=== PATIENT | male | born 1985 | race African-American/Black ===

== ENCOUNTER 2017-06-22 14:56 | Observation (INO) | payer MEDICAID ==
[2017-06-22 15:02] VITALS: BMI 24.3
[2017-06-22] MEDS ORDERED: TORADOL 30 MG VIAL IVP ONE (15:07)
[2017-06-22] MEDS ORDERED: TORADOL 30 MG VIAL ONE (15:08)
--- NOTE | 2017-06-22 15:17 | DR.MBACK ---
HPI - Time Seen Time seen: 15:20 - PCP Primary Care Physician: perry - HPI Comment HPI Comment: PATIENT DENIES PAIN GOING INTO LOWER EXTREMITIES. NO TRAUMA REPORTED. - Complaint Chief Complaint Doctors Comments: INCREASING LOWER BACK PAIN. SNEEZE AT HOME TODAY, HE WAS UNABLE TO MOVE. EMS CALLED. HERE IN ED ON BACK BOARD. IN SEVERE PAIN. BLADDER FUNCTION NOTED IN ED TO BE INTACT. Chief Complaint:: patient stated his back has been bothering him since the of the year. he stated he stayed at his baby [facility] house and he woke up and sneezed and since then he cant move. - Reviewed Nurses Notes Review: Yes - Source History Provided: Patient - Mode of Arrival Mode of Arrival: EMS - Timing Onset of Chief Complaint: 06/21/17 - Duration Duration: Constant Duration: Hours - Location Back Pain Location: Lower, Lumbar Radiation To: None - Severity Severity: Moderate - Quality Quality: Aching, Sharp - Context Onset: Spontaneous History of: None - Modifying Factors Worsened By: None - Associated Signs and Symptoms Back Pain Symptoms: None Numbness: None Weakness: None PMH - PMH Past Medical History: No Past Surgical History: No - Family History History of Family Medical Conditions: No - Social History Does patient currently use any type of tobacco product: Yes Have you used tobacco products in the last 12 months: Yes Type of Tobacco Use: Cigarettes How many years tobacco product used: 5 Does any household member use tobacco: No Alcohol Use: None Do you use any recreational Drugs:: No Lives With: Family Lives Where: Home - infectious screening In the last 2 months have you had wt loss of >10#?: NO Have you had fever, night sweats or hemotysis?: No Have you traveled outside the country in the last 6 months?: No Isolation: Standard ROS - Review of Systems Constitutional: No Symptoms Reported, Weakness. negative: Chills, Fever Eyes: negative: Eye Pain, Discharge ENTM: No Symptoms Reported Respiratoy: No Symptoms Reported Cardiovascular: No Symptoms Reported Gastrointestinal/Abdominal: No Symptoms Reported Genitourinary: negative: Discharge, Dysuria Neurological: Tingling, Problems Walking (OR MOVING IN BED) Musculoskeletal: Muscle Pain Integumentary: No Symptoms Reported Hematologic/Lymphatic: No Symptoms Reported Endocrine: No Symptoms Reported All Other Systems: Reviewed and Negative PE - Vital Signs Vitals: Temperature 98.9 F Pulse Rate 73 Respiratory Rate 16 Blood Pressure [Right Arm] 95/44 Blood Pressure 144/84 O2 Sat by Pulse Oximetry 99 - General Limitations: No Limitations General Appearance: Alert - Head Head Exam: Normal Inspection - Eyes Eye exam: Normal Appearance - ENT ENT Exam: Normal External Ear Exam - Chest Chest Inspection: Symmetric Chest Wall Rise - Respiratory Respiratory Exam: Bilateral Clear to Auscultation - Cardiovascular Cardiovascular Exam: Regular Rate, Normal Rhythm, Normal Heart Sounds - Abdominal Exam Abdominal Exam: Normal Bowel Sounds, Soft. negative: Tenderness - Rectal Rectal Exam: Deferred - Genitourinary Exam: Male: Deferred - Extremities Extremities Exam: Normal Inspection - Back Back Exam: Paraspinal Tenderness, Vertebral Tenderness (LOWER SPINE LUMBOSACRAL AREA TENDER. ROM DECREASE.) - Neurological Neurological Exam: Alert, Oriented X3 - Psychiatric Psychiatric Exam: Normal Affect, Normal Mood - Skin Skin Exam: Normal Color MDM - Additional Information Additional Information Obtained From: Family - Differential Diagnosis Differential Diagnosis: DJD (COMPRESION OF LUMBER DISC WITH PROTUSION), Musculoskeletal Pain, Strain Course - Treatment Treatment: SEE ORDERS. PAIN MED GIVEN IN ED. - Consultation Consultation Comments: DISCUSS PATIENT WITH DR. LINO. MEDICINE TO ADMIT PATIENT. DR. GÓMEZ WILL ADMIT PATIENT. - Education/Counseling Education/Counseling: Patient, Family, Education Educated On: Diagnosis ROR - Labs Reviewed Laboratory Results Reviewed?: Yes Result Diagrams: 06/22/17 18:00 06/22/17 18:00 Laboratory: WBC 9.1 X10^3/uL (3.6-10.0) 06/22/17 18:00 RBC 5.15 X10^6/uL (4.7-6.0) 06/22/17 18:00 Hgb 14.9 g/dL (13.5-18.0) 06/22/17 18:00 Hct 43.8 % (42.0-54.0) 06/22/17 18:00 MCV 85.1 fL (80.0-100.0) 06/22/17 18:00 MCH 28.9 pg (27.0-34.0) 06/22/17 18:00 MCHC 34.0 g/dL (33.0-35.0) 06/22/17 18:00 RDW 14.4 % (11.6-16.5) 06/22/17 18:00 Plt Count 259 X10^3/uL (150.0-450.0) 06/22/17 18:00 MPV 8.3 fL (7.4-11.0) 06/22/17 18:00 Neut % 72.6 % (42.0-75.0) 06/22/17 18:00 Lymph % 18.4 % (21.0-51.0) L 06/22/17 18:00 [place] % 7.2 % (0.0-13.0) 06/22/17 18:00 Eos % 1.3 % (0.9-2.9) 06/22/17 18:00 Baso % 0.5 % (0.2-1.0) 06/22/17 18:00 Neut # 6.6 x10^3/uL (2.2-4.8) H 06/22/17 18:00 Lymph # 1.7 X10^3/uL (1.3-2.9) 06/22/17 18:00 [place] # 0.7 x10^3/uL (0.3-0.8) 06/22/17 18:00 Eos # 0.1 x10^3/uL (0.0-0.2) 06/22/17 18:00 Baso # 0.0 X10^3/uL (0.0-0.1) 06/22/17 18:00 Absolute Nucleated RBC 0.0 /100WBC 06/22/17 18:00 Sodium 138 mmol/L (136-145) 06/22/17 18:00 Corrected Sodium TNP 06/22/17 18:00 Potassium 3.5 mmol/L (3.5-5.1) 06/22/17 18:00 Chloride 103 mmol/L (98-107) 06/22/17 18:00 Carbon Dioxide 28.1 mmol/L (21-32) 06/22/17 18:00 BUN 8 mg/dL (7-18) 06/22/17 18:00 Creatinine 0.91 mg/dL (0.70-1.30) 06/22/17 18:00 Est GFR (MDRD) Af Amer > 60 (>60) 06/22/17 18:00 Est GFR (MDRD) Non-Af > 60 (>60) 06/22/17 18:00 Glucose 99 mg/dL (65-99) 06/22/17 18:00 Calcium 8.9 mg/dL (8.5-10.1) 06/22/17 18:00 Corrected Calcium TNP 06/22/17 18:00 Total Bilirubin 0.50 mg/dL (0.2-1.0) 06/22/17 18:00 AST 20 Units/L (15-37) 06/22/17 18:00 ALT 29 Units/L (12-78) 06/22/17 18:00 Alkaline Phosphatase 101 Units/L (46-116) 06/22/17 18:00 Total Protein 7.6 g/dL (6.4-8.2) 06/22/17 18:00 Albumin 3.8 g/dL (3.4-5.0) 06/22/17 18:00 Globulin 3.8 g/dL (2.5-4.5) 06/22/17 18:00 Albumin/Globulin Ratio 1.0 Ratio (1.1-2.1) L 06/22/17 18:00 Specimen Type Random urine 06/23/17 01:22 Urine Color Yellow (YELLOW) 06/23/17 01:22 Urine Appearance Slightly hazy (CLEAR) 06/23/17 01:22 Urine pH 7.0 (5.0 - 8.0) 06/23/17 01:22 Ur Specific [place] 1.015 (1.000-1.030) 06/23/17 01:22 Urine Protein 1+ (NEGATIVE) 06/23/17 01:22 Urine Glucose (UA) Negative (NEGATIVE) 06/23/17 01:22 Urine Ketones Negative (NEGATIVE) 06/23/17 01:22 Urine Occult Blood Negative (NEGATIVE) 06/23/17 01:22 Urine Nitrite Negative (NEGATIVE) 06/23/17 01:22 Urine Bilirubin Negative (NEGATIVE) 06/23/17 01:22 Urine Urobilinogen Normal (NORMAL) 06/23/17 01:22 Ur Leukocyte Esterase Negative (NEGATIVE) 06/23/17 01:22 Urine RBC 0-3 /HPF (NEGATIVE) 06/23/17 01:22 Urine WBC 0-3 /HPF (NEGATIVE) 06/23/17 01:22 Ur Squamous Epith Cells Few /HPF (NEGATIVE) 06/23/17 01:22 Amorphous Sediment Trace /HPF (NEGATIVE) 06/23/17 01:22 Urine Bacteria Negative /HPF (NEGATIVE) 06/23/17 01:22 Urine Mucus Few /HPF (NEGATIVE) 06/23/17 01:22 Ur Culture Indicated? No/not indicated 06/23/17 01:22 - XRAY XRAY Interpreted by: Radiologist XRAY Findings: REPORT DISCUSS WITH PATIENT. - Diagnosis Discharge Problem: Disc disorder of lumbar region Back pain Qualifiers: Back pain location: low back pain Chronicity: acute Back pain laterality: bilateral Sciatica presence: unspecified whether sciatica present Qualified Code (s): M54.5 - Low back pain - Discharge Plan Disposition: ADMITTED INPATIENT Condition: Stable - Follow ups/Referrals - Instructions
--- NOTE | 2017-06-22 15:44 | CT ---
HISTORY: Back pain, bilateral radiculopathy Study: CT lumbar spine without contrast Comparison: None Technique: Axial noncontrast images with coronal and sagittal reformats. Dose reduction procedures we re used with mA/kv adjusted for body size. Findings: The vertebral body alignment is normal. The vertebral bodies are of average height. No compression fr actures are identified. The pedicles, spinous processes, and posterior elements are intact as are the visualized portions of the SI joints and sacrum. Evaluation of the disc levels demonstrated no evide nce for compressive disc disease or compressive spondylitic change from T12-L1 through L4-5. There is a moderately large compressive central and rightward disc protrusion at L5-S1 which can be seen to p osteriorly displace the right S1 nerve root. It contributes also to some lateral recess narrowing on the right. The left neural foramen is patent. The joints are normal. IMPRESSION: Focal compressive central and right lateral disc protrusion as described at L5-S1 Reported By:
[2017-06-22] MEDS ORDERED: DILAUDID INJ ONE (16:55)
[2017-06-22] MEDS ORDERED: ZOFRAN INJ 4 MG VIAL ONE (16:55)
[2017-06-22] MEDS ORDERED: ZOFRAN INJ 4 MG VIAL IVP ONE (17:03)
[2017-06-22] MEDS ORDERED: DILAUDID INJ IVP ONE ×2 (17:04→17:44)
[2017-06-22] MEDS ORDERED: ZOFRAN INJ 4 MG VIAL IVP PRN (17:20)
[2017-06-22 18:07] LABS: BASOPHILS % (AUTO) 0.5 % (0.2-1.0); EOSINOPHILS # (AUTO) 0.1 x10^3/uL (0.0-0.2); EOSINOPHILS % (AUTO) 1.3 % (0.9-2.9); HEMATOCRIT 43.8 % (42.0-54.0); HEMOGLOBIN 14.9 g/dL (13.5-18.0); LYMPHOCYTES # (AUTO) 1.7 X10^3/uL (1.3-2.9); LYMPHOCYTES % (AUTO) 18.4 % (21.0-51.0); MEAN CORPUSCULAR HEMOGLOBIN 28.9 pg (27.0-34.0); MEAN CORPUSCULAR VOLUME 85.1 fL (80.0-100.0); MEAN PLATELET VOLUME 8.3 fL (7.4-11.0); MONOCYTES # (AUTO) 0.7 x10^3/uL (0.3-0.8); MONOCYTES % (AUTO) 7.2 % (0.0-13.0); NEUTROPHILS # (AUTO) 6.6 x10^3/uL (2.2-4.8); NEUTROPHILS % (AUTO) 72.6 % (42.0-75.0); PLATELET COUNT 259 X10^3/uL (150.0-450.0); RED BLOOD COUNT 5.15 X10^6/uL (4.7-6.0); RED CELL DISTRIBUTION WIDTH 14.4 % (11.6-16.5); WHITE BLOOD COUNT 9.1 X10^3/uL (3.6-10.0)
[2017-06-22 18:21] LABS: ALANINE AMINOTRANSFERASE 29 Units/L (12-78); ALBUMIN 3.8 g/dL (3.4-5.0); ALKALINE PHOSPHATASE 101 Units/L (46-116); ASPARTATE AMINO TRANSFERASE 20 Units/L (15-37); BLOOD UREA NITROGEN 8 mg/dL (7-18); CALCIUM 8.9 mg/dL (8.5-10.1); CARBON DIOXIDE 28.1 mmol/L (21-32); CHLORIDE 103 mmol/L (98-107); CREATININE 0.91 mg/dL (0.70-1.30); SODIUM 138 mmol/L (136-145); TOTAL PROTEIN 7.6 g/dL (6.4-8.2); eGFR BLACK RACES > 60 (>60); eGFR NON BLACK RACES > 60 (>60)
[2017-06-22] MEDS: NS 1000 ML 1,000 ML IV SCH (18:29)
[2017-06-22] MEDS: DILAUDID INJ IVP PRN (22:00)
[2017-06-23] MEDS ORDERED: DILAUDID INJ IVP ONE ×2 (00:42→06:09)
[2017-06-23 02:21] LABS: BILIRUBIN,URINE NEGATIVE (NEGATIVE); BLOOD/HEMOGLOBIN,URINE NEGATIVE (NEGATIVE); GLUCOSE, URINE NEGATIVE (NEGATIVE); KETONES,URINE NEGATIVE (NEGATIVE); LEUKOCYTE ESTERASE ,URINE NEGATIVE (NEGATIVE); NITRITES,URINE NEGATIVE (NEGATIVE); PROTEIN,URINE 1+ (NEGATIVE); UROBILINOGEN,URINE NORMAL (NORMAL)
[2017-06-23 02:28] LABS: AMORPHOUS SEDIMENT,UR TRACE /HPF (NEGATIVE); APPEARANCE,URINE SLIGHTLY HAZY (CLEAR); BACTERIA,URINE NEGATIVE /HPF (NEGATIVE); COLOR,URINE YELLOW (YELLOW); MUCUS,URINE FEW /HPF (NEGATIVE); RBC,URINE 0-3 /HPF (NEGATIVE); SQUAMOUS EPITHELIAL CELL,UR FEW /HPF (NEGATIVE)
[2017-06-23] MEDS: DILAUDID INJ IVP PRN ×3 (04:16→12:45)
[2017-06-23] MEDS: NS 1000 ML 1,000 ML IV SCH (06:32)
[2017-06-23] MEDS ORDERED: MEDROL DOSEPAK 4 MG PER TAB PO SCH (10:00)
--- NOTE | 2017-06-23 12:29 | MRI ---
HISTORY: L5-S1 disc protrusion, low back pain Study: Noncontrast MRI of the lumbar spine Comparison: CT scan of the lumbar spine done 06/22/2017. Technique: Multiplanar multi-sequence MRI of the lumbar spine was obtained. Sagittal T1, sagittal T2 , and stir weighted images, axial T1, and axial T2 images were obtained. Findings: The lumbar spine demonstrates normal alignment with the expected signal characteristics of the bone m arrow. The conus of the cord terminates normally. There is disc desiccation and mild disc space ruth ann rowing at L5-S1. T12 -- L1: Unremarkable L1 -- L2: Unremarkable L2 -- L3: Unremarkable L3 -- L4: Unremarkable L4 -- L5: Unremarkable L5 -- S1: Disc space narrowing and disc desiccation. There is a midline-right paracentral disc protru edson/extrusion with exiting and transiting nerve root impingement. Mild-moderate lateral recess narro wing is seen on the right side. IMPRESSION: Midline-right paracentral disc protrusion/extrusion with exiting and transiting nerve root impingemen t of L5-S1. Remainder of the disc spaces are normal. Reported By:
[2017-06-23 13:20] VITALS: BP 119/83
--- NOTE | 2017-06-23 14:08 | DR.CONSULT ---
Consult - Consultation for Day of: Date: 06/23/17 - Chief Complaint Chief Complaint: back pain - Allergies Allergies/Adverse Reactions: Allergies Allergy/AdvReac Type Severity Reaction Status Date / Time No Known Drug Allergies Allergy Verified 06/22/17 15:03 - History of Present Illness History of Present Illness: he had an acute onset of back pain after a sneezing episode. He reports that his back pain as a radiating pain on the RIGHT lower limb radiating down to his toes. Excruciating back pain and so he presented to the emergency room. No bowel or bladder disturbances. No weakness noted in his symptoms. Numbness and tingling noted in the toes and in the sole. - Family History Family Medical History: Diabetes Mellitus - Social History Does patient currently use any type of tobacco product: Yes Have you used tobacco products in the last 12 months: Yes Type of Tobacco Use: Cigarettes How many years tobacco product used: 5 Does any household member use tobacco: No Alcohol Use: None Drug Use: None - Medications Home Medications: NK [NK] 06/22/17 [History Confirmed 06/22/17] - Review of Systems Musculoskeletal: Back Pain - Physical Exam Vital Signs: Temperature 97.5 F Pulse Rate [Apical] 84 Pulse Rate 73 Respiratory Rate 20 Blood Pressure [Right Arm] 119/83 Blood Pressure 144/84 O2 Sat by Pulse Oximetry 98 Musculoskeletal: Back:Lumbar (tenderness in the lower lumbar region noted. Paraspinal muscle spasm positive. SLR positive on the RIGHT side. FHL weakness on the RIGHT side noted. Sensory disturbance and S1 droop noted.) - Plan Plan: CT MRI and x-rays were reviewed. It shows a L5-S1 disc protrusion compressing the RIGHT S1 nerve and causing foraminal stenosis. Treatment discussions were done with the patient. We'll treat him conservatively at this time. Advised bedrest, started on Medrol Dosepak, by mouth pain meds and follow up as advised.
== END 2017-06-23 13:00 | disposition home or self-care (01) ==
LOC: ER 14:56 → OBS 17:12
PROVIDERS: ADMIT Obstetrics & Gynecology Obstetrics; ATTEND Obstetrics & Gynecology Obstetrics
DX: M54.5 Low back pain (principal); M51.26 Other intervertebral disc displacement, lumbar region; M48.061 Spinal stenosis, lumbar region without neurogenic claudication
CPT/HCPCS: 36415; 72131; 72158; 80053; 81001; 85025; 96365; 96374; 96375; 99282; 99284; G0378; J1170; J1885; J2405